=== PATIENT | male | born 1960 | race Caucasian/White ===

== ENCOUNTER → 2016-02-26 | Outpatient (CLI) | payer OTHER ==
[~2016-02-26] MED LIST: ALLO300T2 PO; ATV/1 PO; CMBIN INH; GUAI1TAB55 PO; IPRASOL4 INH; LISI10TA PO; TAMS0.4C59 PO
== END | disposition home or self-care (01) ==
LOC: C.PATHSPEC 11:42
PROVIDERS: ATTEND Plastic Surgery
DX: H02.9 Unspecified disorder of eyelid (principal); L82.1 Other seborrheic keratosis